=== PATIENT | female | born 1990 | race Caucasian/White ===

== ENCOUNTER 2022-09-09 06:15 | Inpatient (IN) ==
[2022-09-09] MEDS ORDERED: ANCEF VIAL 1 GRAM IVP ONE (06:35)
[2022-09-09] MEDS ORDERED: NS 100 ML IV 100 ML ONE (06:39)
[2022-09-09 07:03] VITALS: BMI 34.9
[2022-09-09] MEDS: D5 1/2 NS 1,000 ML 1,000 ML IV SCH ×5 (07:04→22:35)
[2022-09-09] MEDS ORDERED: SUPRANE ONE (07:06)
[2022-09-09] MEDS ORDERED: OFIRMEV IV 1000 MG VIAL 1,000 MG/100 ML VIAL IV ONE (07:08)
[2022-09-09] MEDS ORDERED: DIPRIVAN VIAL 20 ML ONE (07:08)
[2022-09-09] MEDS ORDERED: MAGNESIUM SULFATE 50% INJ VIAL ONE (07:08)
[2022-09-09] MEDS ORDERED: ZOFRAN INJ 4 MG VIAL ONE (07:09)
[2022-09-09] MEDS ORDERED: KETAMINE 50 MG/5 ML-NACL SYRNG ONE (07:09)
[2022-09-09] MEDS ORDERED: DECADRON INJ ONE (07:09)
[2022-09-09] MEDS ORDERED: PEPCID 20 MG VIAL ONE (07:09)
[2022-09-09] MEDS ORDERED: ZEMURON 100 MG VIAL ONE (07:09)
[2022-09-09] MEDS ORDERED: VERSED ONE (07:09)
[2022-09-09] MEDS ORDERED: DILAUDID INJ ONE ×3 (07:09→10:06)
[2022-09-09] MEDS ORDERED: EPHEDRINE SULFATE INJ ONE (07:39)
[2022-09-09] MEDS ORDERED: ProvayBLUE 0.5% ONE (08:22)
[2022-09-09] MEDS ORDERED: BRIDION ONE (09:07)
[2022-09-09] MEDS ORDERED: ZOFRAN INJ 4 MG VIAL IVP PRN (09:45)
[2022-09-09] MEDS ORDERED: REGLAN INJ 10 MG VIAL IVP PRN (09:45)
[2022-09-09] MEDS ORDERED: BARHEMSYS INJ IVP PRN (09:45)
[2022-09-09] MEDS ORDERED: BENADRYL INJ 50 MG VIAL IVP PRN ×2 (09:45→10:41)
[2022-09-09] MEDS: DILAUDID INJ IVP PRN ×4 (09:46→10:12)
[2022-09-09] MEDS ORDERED: D5 1/2 NS 1,000 ML 1,000 ML IV ONE (09:48)
[2022-09-09] MEDS ORDERED: TORADOL 30 MG VIAL IVP PRN (10:41)
[2022-09-09] MEDS ORDERED: MORPHINE SULFATE PCA 30 MG IVP PRN (10:41)
[2022-09-09] MEDS: ZOFRAN INJ 4 MG VIAL IVP PRN ×2 (14:14→18:07)
[2022-09-10] MEDS: D5 1/2 NS 1,000 ML 1,000 ML IV SCH ×3 (00:53→13:35)
[2022-09-10 05:04] LABS: BASOPHILS # (AUTO) 0.2 X10^3/uL (0.0-0.1); BASOPHILS % (AUTO) 1.5 % (0.2-1.0); EOSINOPHILS # (AUTO) 0.1 x10^3/uL (0.0-0.2); EOSINOPHILS % (AUTO) 0.9 % (0.9-2.9); HEMATOCRIT 35.3 % (36.0-47.0); LYMPHOCYTES # (AUTO) 0.9 X10^3/uL (1.3-2.9); LYMPHOCYTES % (AUTO) 7.3 % (21.0-51.0); MEAN CORPUSCULAR HEMOGLOBIN 28.7 pg (27.0-34.0); MEAN CORPUSCULAR HGB CONC 33.9 g/dL (33.0-35.0); MEAN CORPUSCULAR VOLUME 84.6 fL (80.0-100.0); MEAN PLATELET VOLUME 7.8 fL (7.4-11.0); MONOCYTES # (AUTO) 1.1 x10^3/uL (0.3-0.8); MONOCYTES % (AUTO) 9.3 % (0.0-13.0); NEUTROPHILS # (AUTO) 9.6 x10^3/uL (2.2-4.8); RED BLOOD COUNT 4.18 X10^6/uL (3.5-5.4); RED CELL DISTRIBUTION WIDTH 13.2 % (11.6-16.5); WHITE BLOOD COUNT 11.9 X10^3/uL (3.6-10.0)
[2022-09-10 05:12] LABS: BLOOD UREA NITROGEN 6 mg/dL (7-18); CARBON DIOXIDE 29.2 mmol/L (21-32); CHLORIDE 104 mmol/L (98-107); COR NA(FOR HYPERGLY) 139 mmol/L (136-145); CREATININE 0.63 mg/dL (0.55-1.02); SODIUM 138 mmol/L (136-145); eGFR NON BLACK RACES > 60 (>60)
[2022-09-10 05:26] LABS: BAND NEUTROPHILS % 2 % (0-10); PLATELET MORPHOLOGY COMMENT NORMAL (NORMAL)
[2022-09-10] MEDS: PROzac PO SCH (10:00)
[2022-09-10] MEDS: COLACE CAP 100 MG PO SCH ×2 (10:00→21:05)
[2022-09-10] MEDS: ZESTRIL TAB 10 MG PO SCH (10:58)
[2022-09-10] MEDS: PERCOCET TAB 5/325 MG PO PRN (12:00)
[2022-09-10] MEDS: BACTROBAN TOPICAL OINT TOP SCH ×2 (13:57→21:06)
[2022-09-10] MEDS: MOTRIN TAB 800 MG PO PRN (13:57)
[2022-09-11] MEDS: PERCOCET TAB 5/325 MG PO PRN (02:53)
[2022-09-11] MEDS: BACTROBAN TOPICAL OINT TOP SCH (05:54)
[2022-09-11] MEDS: COLACE CAP 100 MG PO SCH (08:11)
[2022-09-11] MEDS: PROzac PO SCH (08:12)
[2022-09-11] MEDS: ZESTRIL TAB 10 MG PO SCH (08:14)
[2022-09-11 09:44] VITALS: BP 115/64
[2022-09-11] MEDS: MOTRIN TAB 800 MG PO PRN (10:12)
[2022-09-13] MEDS ORDERED: SUPRANE ONE (07:23)
== END 2022-09-11 11:00 | disposition home or self-care (01) | DRG 743 ==
LOC: MED/SURG 06:15
PROVIDERS: ADMIT Specialist; ATTEND Specialist